=== PATIENT | male | born 1945 | race Caucasian/White ===

== ENCOUNTER 2020-12-14 11:10 | Observation (INO) | payer MEDICARE, OTHER, SELFPAY ==
[2020-12-14] VITALS (18 sets, daily range): BP systolic 89–140; BP diastolic 53–75; PULSE 83–153; RESP 18–25; TEMP 36.5–36.6; O2SAT 96–100; BMI 22.9
--- NOTE | ~2020-12-14 | XR_ITS ---
EXAMINATION: XR chest 1V portable 12/14/2020 11:28 INDICATION: Chest pain and shortness of breath PROCEDURE: AP portable chest COMPARISON: 03/21/2018 FINDINGS: The lungs are clear. The lungs are hyperinflated which is consistent with, but not diagnost ic of chronic obstructive pulmonary disease. The cardiomediastinal silhouette is within normal limit s. There are no pleural effusions. There is no pneumothorax suspected. IMPRESSION: 1: NO ACUTE CARDIOPULMONARY DISEASE. Reviewed, dictated and finalized at location A.
--- NOTE | 2020-12-14 11:14 | ECG_ITS ---
Measurements Intervals [place] Rate: 119 P: GA: 0 QRS: 25 QRSD: 82 T: 67 QT: 323 QTc: 455 Interpretive Statements SINUS TACHYCARDIA ATRIAL AND VENTRICULAR PREMATURE COMPLEXES BORDERLINE R WAVE PROGRESSION, ANTERIOR LEADS BORDERLINE T WAVE ABNORMALITY- HIGH LATERAL LEADS BASELINE ARTIFACT- I, II, AVR, AVL ABNORMAL ECG Electronically Signed On 12-14-2020 11:51:44 CDT by Fransico Guerra D.O.
[2020-12-14] MEDS: dilTIAZem HCl INJ 25 MG/5 ML VIAL IV PUSH (11:40)
--- NOTE | 2020-12-14 11:47 | ED.GENADULT ---
HPI - General Adult General Chief complaint: Arrhythmia/Palpitations Stated complaint: CP/SOB Time Seen by Provider: 12/14/20 11:14 Source: patient History of Present Illness HPI narrative: Patient is a 75 y/o male complaining of chest pain when he woke up this morning. He describes his chest pain as pressure and rates it as 8/10 initially. He state that his chest pain radiates to both side of his neck. He also has SOB and heart palpitation. He was given Adenosine by EMS and his symptoms have improved. He rates his chest discomfort as 2/10 currently. Related Data Home Medications Medication Instructions Recorded Confirmed sildenafil See Rx Instructions .ROUTE .COMPLEX 12/14/20 12/14/20 Allergies Allergy/AdvReac Type Severity Reaction Status Date / Time No Known Allergies Allergy Unknown Unverified 05/02/15 13:17 Review of Systems Constitutional: Constitutional: Denies chills, Denies fever(s), Denies headache(s) and Denies weakness Eyes: Eyes: Denies blurry vision ENT: Denies headache(s) and Denies neck pain Cardiovascular: Cardiovascular: Reports chest pain, Reports rapid heart rate and Reports dyspnea Respiratory: Respiratory: Denies cough and Reports dyspnea Gastrointestinal: Gastrointestinal: Denies abdominal pain, Denies diarrhea, Denies nausea and Denies vomiting Genitourinary: Genitourinary: Denies hematuria and Denies dysuria Musculoskeletal: Musculoskeletal: Denies back pain and Denies neck pain Neurologic: Denies headache(s) and Denies weakness [facility] Social History Social History Smoking packs per day: 1 Smoking cigarettes per day: 20.0 Years smoked: 60 Smoking pack-years: 60.00 Smoking status: Current every day smoker Tobacco type: cigarettes Alcohol intake: current Drinks per week: 56 Substance use: never Gender identity (if verbalized by the patient): Male Spiritual care concerns: No Exam Const: General: no acute distress and well developed Orientation/consciousness: oriented to person, oriented to place, oriented to time and patient oriented x3 HENMT: Head: normocephalic Ears: external ears normal General nose exam: Normal external nose present Eyes: General: appearance normal, both eyes and all related structures Conjunctivae: conjunctivae normal Neck: Neck: normal visual inspection and full ROM Chest: Chest palpation & inspection: normal inspection of the chest and no tenderness Resp: Effort & Inspection: normal respiratory effort Auscultation: clear to auscultation bilaterally Cardio: Rate: tachycardic Rhythm: regular rhythm GI: GI Palp: No abdominal tenderness and Yes Soft to palpation Skin: General skin exam: normal color and turgor normal Neuro: General: oriented to person, oriented to place, oriented to time and patient oriented x3 Cognition (Neuro): normal cognition Extrem: General: normal to inspection, full ROM and no pedal edema Psych: Appearance: grossly normal Mental Status: mental status grossly normal Affect: normal affect Course Reevaluation(s) Reevaluation #1: Monitor appears to show A fib/flutter with HR 140s. Will order Cardizem Date: 12/14/20 Time: 11:30 Consultations Consultation #1: Discussed with Dr. Heart, who will consult and recommends IV heparin. Date: 12/14/20 Time: 14:25 Consultation #2: Discussed with MITCHEL Colmenares, who agrees to admit. Date: 12/14/20 Time: 14:29 Vital Signs Vital signs: Vital Signs Temperature 36.5 C 12/14/20 11:12 Pulse Rate 116 H 12/14/20 11:12 Respiratory Rate 24 H 12/14/20 11:12 Blood Pressure 94/67 L 12/14/20 11:12 Pulse Oximetry 100 12/14/20 11:12 Temperature 36.5 C 12/14/20 11:12 Pulse Rate 113 H 12/14/20 15:37 Respiratory Rate 22 H 12/14/20 15:37 Blood Pressure 130/75 12/14/20 15:37 Pulse Oximetry 96 12/14/20 15:37 Medical Decision Making Vital Signs Vital Signs: Vital Signs Temperature
[2020-12-14 11:55] LABS: Basophils Percent Auto 0.3 % (0.2-1.2); Eosinophils Percent Auto 0.1 % (0-4.4); Hematocrit 40.4 % (42.0-52.0); Hemoglobin 13.6 g/dL (14.0-18.0); Immature Granulocyte Absolute 0.04 K/mm3 (0.00-0.031); Immature Granulocyte Percent A 0.6 % (0-0.5); Lymphocytes Absolute Auto 1.27 K/mm3 (0.9-3.2); Lymphocytes Percent Auto 18.2 % (18.3-44.2); Mean Corpuscular HGB Conc 33.7 g/dl (32-36); Mean Corpuscular Hemoglobin 35.4 pg (26-34); Mean Corpuscular Volume 105.2 fl (80-100); Mean Platelet Volume 9.9 fl (7.4-10.4); Monocytes Absolute Auto 0.7 K/mm3 (0.1-0.6); Monocytes Percent Auto 10.3 % (2.6-8.5); Neutrophils Absolute Auto 4.9 K/mm3 (1.3-6.7); Neutrophils Percent Auto 70.5 % (45.5-73.1); Platelet Count Result 102 k/mm3 (150-375); Red Blood Count 3.84 M/mm3 (4.6-6.20); Red Cell Distribution Width 17.1 % (11.5-14.5)
[2020-12-14 12:06] LABS: Prothrombin Time 13.8 Seconds (11.1-14.7)
[2020-12-14 12:07] LABS: Partial Thromboplastin Time 29.7 SECONDS (22.3-36.8)
[2020-12-14 12:11] LABS: Albumin Level 4.2 g/dL (3.5-5.1); Alkaline Phosphatase 85 U/L (38-126); Anion Gap 13 mmol/L (8-16); Aspartate Amino Transferase 92 U/L (17-59); Bilirubin,Total 1.5 mg/dL (0.2-1.3); Blood Urea Nitrogen 19 mg/dL (9-20); Carbon Dioxide 23 mmol/L (22-30); Chloride 102 mmol/L (98-107); Estimated CRCL calculation 54 ml/min; Estimated Glomerular Filt Rate 59; Glucose 130 mg/dL (75-110); Potassium 3.3 mmol/L (3.4-5.0); Sodium 138 mmol/L (137-145)
[2020-12-14 12:19] LABS: NT Pro B Type Natriuretic Pept 2830 PG/ML (5-100); Troponin I < 0.012 ng/mL (0.000-0.034)
[2020-12-14 12:23] LABS: Alanine Aminotransferase 46 U/L (4-50)
--- NOTE | 2020-12-14 12:43 | ECG_ITS ---
Measurements Intervals [place] Rate: 137 P: MT: 0 QRS: 22 QRSD: 79 T: 61 QT: 299 QTc: 452 Interpretive Statements ATRIAL FIBRILLATION WITH RAPID VENTRICULAR RESPONSE BORDERLINE R WAVE PROGRESSION, ANTERIOR LEADS ABNORMAL ECG Electronically Signed On 12-14-2020 13:58:20 CDT by Fransico Guerra D.O.
[2020-12-14] MEDS: SODIUM CHLORIDE 0.9% IV 1,000 ML 999 ML IV CONT ×2 (12:57→14:44)
[2020-12-14] MEDS: AMIODARONE 150 MG/D5W 100 ML 150 MG/100 ML BAG 600 MG IV CONT (13:47)
[2020-12-14] MEDS: POTASSIUM CHLORIDE 20 MEQ TABLET PO (13:49)
[2020-12-14 14:02] LABS: Magnesium 1.3 mg/dL (1.6-2.3)
[2020-12-14] MEDS: AMIODARONE 360 MG/D5W 200 ML 360 MG/200 ML BAG 33.33 MG IV CONT (14:11)
--- NOTE | 2020-12-14 14:45 | PM.CNCAR ---
Assessment and Plan Assessment and plan (1) Atrial fibrillation with rapid ventricular response: Code(s): I48.91 - Unspecified atrial fibrillation Status: Acute Assessment and Plan: Rate improved with Cardizem, but continued to have significant tachycardia, subsequently was started on amiodarone, rate is slowing down now he feels more comfortable, I would continue with low-dose Cardizem drip along with amiodarone drip until heart rate is down in the 70s then was switched to oral medications. Will get echocardiogram to evaluate current status left ventricular systolic function look for any other structural heart disease (2) Shortness of breath: Code(s): R06.02 - Shortness of breath Status: Acute Assessment and Plan: will get echo today, shortness breath could be due to COPD, or due to atrial fibrillation, and subsequent diastolic congestive heart failure (3) Atypical chest pain: Code(s): R07.89 - Other chest pain Status: Acute Assessment and Plan: Currently pain-free, will follow up cardiac enzymes and serial EKGs, he would need further cardiac workup possibly with a stress test at some point when he is otherwise more stable (4) Peripheral vascular disease: Code(s): I73.9 - Peripheral vascular disease, unspecified Status: Acute (5) Smoking: Code(s): F17.200 - Nicotine dependence, unspecified, uncomplicated Status: Acute (6) History of incision of pericardium: Code(s): Z98.890 - Other specified postprocedural states Status: Acute Additional Plan Thank you for allowing me to participate in this patient's care, I will be following up with you. Please do not hesitate to call me for any other inquiry History of Present Illness History of Present Illness Consult date/time: 12/14/20 14:45 75 years old gentleman, with history of pericarditis and history of pericardial window, came to the hospital because of palpitation started this morning. Start having palpitation and lightheadedness earlier this morning initially noted to have atrial fibrillation with rate of 140-150 she was he was started on Cardizem drip, with some improvement of the right and he continued to have significant tachycardia noted to have a soft blood pressure. Upon my arrival he seems to be feeling better and his heart rate now is like 110 he was started on amiodarone drip which seem to be helping with his heart rate now. Also had some chest pain heaviness in the chest with radiation to the back, no orthopnea no PNDs no dizziness. He stated that few years ago he had pericarditis and he had dizziness and noted to have pericardial tamponade lead into cardiac window that was done at [facility]. Since then he had a stress test several years ago but no recent cardiac workup otherwise. Currently he is in AFib rate 110 not having active pain and not having active palpitation. Reason For Visit: CP/SOB Review of Systems Review of Systems: Narrative: Feels fatigued, dizziness as above and palpitation as above, he has cold legs and occasional claudication Constitutional: Constitutional: Reports as per HPI Cardiovascular: Cardiovascular: Reports as per HPI Respiratory: Respiratory: Reports as per HPI and Reports cough Meds Home Medications and Allergies Allergies Allergy/AdvReac Type Severity Reaction Status Date / Time No Known Allergies Allergy Unknown Unverified 05/02/15 13:17 Vital Signs Vital Signs - 24 hr 12/14/20 11:12 12/14/20 11:40 12/14/20 12:14 Temperature 36.5 C Pulse Rate 116 H 147 H 153 H Respiratory Rate 24 H 25 H Blood Pressure 94/67 L 93/58 L 105/74 Pulse Oximetry 100 100 12/14/20 13:15 12/14/20 14:11 Temperature Pulse Rate 127 H 115 H Respiratory Rate Blood Pressure 91/71 L Pulse Oximetry Exam Narrative: Exam Narrative: Awake alert oriented x3 not in acute distress Neck is supple no obvious JVD, no carotid bruit Rowan
[2020-12-14 14:48] LABS: Troponin I < 0.012 ng/mL (0.000-0.034)
[2020-12-14] MEDS: DIGOXIN INJ 250 MCG/ML 2 ML AMP (*BKC) IV PUSH (15:14)
[2020-12-14] MEDS: HEPARIN SODIUM 5,000 UNITS/ML VIAL 4000 UNITS IV PUSH (15:14)
[2020-12-14] MEDS: HEPARIN SOD/D5W 100 UNITS/ML 25,000 UNITS/250 ML BAG 10 UNITS IV CONT (15:17)
--- NOTE | 2020-12-14 16:34 | ADMGEN ---
This patient, Tino Whitlock, was admitted to IMU Room 204-01. Patient/family oriented to hospital policies and general routines including ID bracelet, bed and alarms, visiting hours, pain management, procedures, bathroom and other care routines, personal items, smoking policy, room service/diet, and visiting hours. Information on how to activate the Rapid Response Team has been discussed. Patient/Family are encouraged to report perceived risks to care and to ask questions if they do not understand what they are told or what they should do.
[2020-12-14 17:51] LABS: Troponin I < 0.012 ng/mL (0.000-0.034)
[2020-12-14] MEDS: chlordiazePOXIDE (*CRX) 25 MG CAPSULE 50 MG PO ×2 (18:32→23:19)
--- NOTE | 2020-12-14 20:17 | PM.IMHP ---
H&P: HPI History of Present Illness Date/Time: 12/14/20 20:17 Chief Complaint: chest pain since this morning++ Narrative: This is a pleasant 75-year-old male with no significant past medical history who does not take any medications at home regularly and presented to the hospital today after waking up this morning with significant chest pain. Patient's chest pain was described as pressure-like and radiating up towards his neck. The patient also felt very tremulous, anxious, and diaphoretic. The patient is known to be a chronic lifelong smoker and drinker of alcohol. He recently just stopped drinking alcohol approximately 2 days ago. He is known to normally drink 5 or 6 drinks of vodka daily. EMS found that the patient was in SVT with a heart rate in the 200s and was treated with adenosine in route to the hospital. EKG obtained in the emergency room demonstrated atrial fibrillation with RVR. The patient has no past history of cardiac arrhythmias or known coronary artery disease.The patient was treated with Cardizem, digoxin, and amiodarone to help control his heart rate. He was also anticoagulated with heparin IV. Cardiology has been consulted and has already evaluated the patient. The patient denies any recent fevers, chills, coughing, sore throat, abdominal pain, nausea, vomiting, dysuria, hematuria, diarrhea, rectal bleeding, lower extremity pain or swelling. Patient has been admitted for cardiac rule out and for his new onset atrial fibrillation. On my encounter with the patient tonight he denies any current chest pain and his heart rate is now relatively controlled. Review of Systems Review of Systems: All systems reviewed & are unremarkable except as noted in HPI and below PMFSH Past Medical History Medical History (Updated 12/14/20 @ 20:33 by Addy Barnett MD) Pericardial effusion Surgical History Surgical History (Updated 12/14/20 @ 20:25 by Addy Barnett MD) S/P pericardial window creation Family History Family History (Updated 12/14/20 @ 21:34 by Racquel Wolf RN) Other Unknown family medical history Social History Social History Smoking packs per day: 1 Smoking cigarettes per day: 20.0 Years smoked: 60 Smoking pack-years: 60.00 Smoking status: Current every day smoker Tobacco type: cigarettes Alcohol intake: current Drinks per week: 56 Substance use: never Gender identity (if verbalized by the patient): Male Spiritual care concerns: No Comments Family Medical history is reviewed and unremarkable. Meds Home Medications and Allergies Home Medications Medication Instructions Recorded Confirmed Type sildenafil See Rx Instructions .ROUTE .COMPLEX 12/14/20 12/14/20 History Allergies Allergy/AdvReac Type Severity Reaction Status Date / Time No Known Allergies Allergy Unknown Unverified 05/02/15 13:17 Vital Signs Vital Signs - 24 hr 12/14/20 11:12 12/14/20 11:40 12/14/20 12:14 Temperature 36.5 C Pulse Rate 116 H 147 H 153 H Pulse Rate [Monitor] Respiratory Rate 24 H 25 H Blood Pressure 94/67 L 93/58 L 105/74 Pulse Oximetry 100 100 12/14/20 13:15 12/14/20 14:11 12/14/20 15:14 Temperature Pulse Rate 127 H 115 H 112 H Pulse Rate [Monitor] Respiratory Rate Blood Pressure 91/71 L Pulse Oximetry 12/14/20 15:20 12/14/20 15:37 12/14/20 17:07 Temperature 36.6 C Pulse Rate 107 H 113 H 89 Pulse Rate [Monitor] Respiratory Rate 21 H 22 H 22 H Blood Pressure 89/74 L 130/75 140/53 L Pulse Oximetry 99 96 98 12/14/20 17:17 12/14/20 17:31 12/14/20 18:30 Temperature Pulse Rate 89 103 H Pulse Rate [Monitor] 104 H Respiratory Rate 22 H Blood Pressure Pulse Oximetry 98 12/14/20 19:48 Temperature 36.6 C Pulse Rate 97 Pulse Rate [Monitor] Respiratory Rate 18 Blood Pressure 98/60 L Pulse Oximetry 96 Exam Const: General: cooperativ
[2020-12-14] MEDS: AMIODARONE 360 MG/D5W 200 ML 360 MG/200 ML BAG 16.67 MG IV CONT (20:59)
[2020-12-14 21:24] LABS: Anion Gap 2 mmol/L (8-16); Blood Urea Nitrogen 19 mg/dL (9-20); Calcium 8.2 mg/dL (8.4-10.2); Carbon Dioxide 28 mmol/L (22-30); Chloride 105 mmol/L (98-107); Estimated CRCL calculation 63 ml/min; Estimated Glomerular Filt Rate > 60; Glucose 97 mg/dL (75-110); Magnesium 1.2 mg/dL (1.6-2.3); Potassium 3.7 mmol/L (3.4-5.0); Sodium 135 mmol/L (137-145)
[2020-12-14 21:25] LABS: Partial Thromboplastin Time 67.9 SECONDS (22.3-36.8)
[2020-12-14] MEDS: NICOTINE (*PBKC) 21 MG PATCH 1 PATCH TRANSDERM (23:18)
[2020-12-14] MEDS: dilTIAZem HCL 60 MG TABLET PO (23:31)
[2020-12-14] MEDS: HEPARIN SODIUM 5,000 UNITS/ML VIAL 3500 UNITS IV PUSH (23:31)
[2020-12-15] VITALS (18 sets, daily range): BP systolic 109–119; BP diastolic 52–85; PULSE 74–100; RESP 18–22; TEMP 36–36.6; O2SAT 92–100
[2020-12-15 05:14] LABS: Basophils Percent Auto 0.4 % (0.2-1.2); Eosinophils Absolute Auto 0.1 K/mm3 (0-0.3); Eosinophils Percent Auto 1.8 % (0-4.4); Hematocrit 32.4 % (42.0-52.0); Immature Granulocyte Absolute 0.03 K/mm3 (0.00-0.031); Immature Granulocyte Percent A 0.7 % (0-0.5); Lymphocytes Absolute Auto 1.21 K/mm3 (0.9-3.2); Lymphocytes Percent Auto 26.9 % (18.3-44.2); Mean Corpuscular Hemoglobin 35.7 pg (26-34); Mean Corpuscular Volume 105.2 fl (80-100); Mean Platelet Volume 10.5 fl (7.4-10.4); Monocytes Absolute Auto 0.4 K/mm3 (0.1-0.6); Monocytes Percent Auto 9.6 % (2.6-8.5); Neutrophils Absolute Auto 2.7 K/mm3 (1.3-6.7); Neutrophils Percent Auto 60.6 % (45.5-73.1); Platelet Count Result 92 k/mm3 (150-375); Red Blood Count 3.08 M/mm3 (4.6-6.20); Red Cell Distribution Width 17.1 % (11.5-14.5); White Blood Count 4.5 K/mm3 (4.5-10.0)
[2020-12-15] MEDS: chlordiazePOXIDE (*CRX) 25 MG CAPSULE 50 MG PO ×4 (05:23→23:09)
[2020-12-15] MEDS: dilTIAZem HCL 60 MG TABLET PO (05:23)
[2020-12-15 05:32] LABS: Partial Thromboplastin Time 192.3 SECONDS (22.3-36.8)
--- NOTE | 2020-12-15 08:18 | PM.IMPN ---
Progress Note: A&P Assessment and Plan (1) Atrial fibrillation with rapid ventricular response: Code(s): I48.91 - Unspecified atrial fibrillation Status: Acute Assessment and Plan: Patient has been admitted to IMU, telemetry. Continue amiodarone and Cardizem for rate control overnight. Continue heparin IV for anticoagulation. TSH is nromal., echocardiogram reviewed. Continue Cardiology recommendations. iv heaprin gtt stoped. back to sinus rhythm (2) Chest pain: Qualifiers: Chest pain type: unspecified Qualified Code(s): R07.9 - Chest pain, unspecified Code(s): R07.9 - Chest pain, unspecified Status: Acute Assessment and Plan: ACS ruled out. chest pain likely from severe tachycardia and alcohol withdrawal. apprecaite cardiology recs. (3) Alcohol withdrawal: Qualifiers: Complication of substance-induced condition: with unspecified complication Qualified Code(s): F10.239 - Alcohol dependence with withdrawal, unspecified Code(s): F10.239 - Alcohol dependence with withdrawal, unspecified Status: Acute Assessment and Plan: [facility] protocol. Thiamine IV daily. Ativan withdrawal prophylaxis IV. Librium p.o. scheduled. Social service consult. still on withdrawal. (4) Hypokalemia: Code(s): E87.6 - Hypokalemia Status: Acute Assessment and Plan: repalced. mg low which is replaced. recheck ordered. (5) Hypomagnesemia: Code(s): E83.42 - Hypomagnesemia Status: Acute Assessment and Plan: supplmeented. monitor with recheck. (6) Macrocytic anemia: Code(s): D53.9 - Nutritional anemia, unspecified Status: Chronic Assessment and Plan: Likely chronic and secondary to chronic alcoholism. Monitor H&H, transfuse p.r.n.. No signs of acute blood loss (7) Tobacco dependence: Code(s): F17.200 - Nicotine dependence, unspecified, uncomplicated Status: Chronic Assessment and Plan: on alcohol withdrdawal. iv heparin gtt off. cardiology okay to discahrge . await medical stability from alcohol withdrawal standpoint. Subjective Date/time seen: 12/15/20 08:18 feels okay and much better. he is still shaky and is on scheduled librium. he has been drinking quite a long time and wants to quit. Review of Systems Review of Systems: All systems reviewed & are unremarkable except as noted in HPI and below Constitutional: Constitutional: Denies body ache(s), Denies fatigue and Denies weakness Eyes: Eyes: Denies photophobia ENT: Denies Normal hearing present and Denies tinnitus Cardiovascular: Cardiovascular: Denies chest pain and Denies palpitations Respiratory: Respiratory: Denies dyspnea and Denies dyspnea on exertion Gastrointestinal: Gastrointestinal: Denies melena, Denies nausea and Denies vomiting Genitourinary: Genitourinary: Denies urinary frequency and Denies urinary incontinence Musculoskeletal: Musculoskeletal: Denies back pain and Denies arthralgias Integumentary/Breasts: Skin/Breast: Denies rash and Denies unusual bruising Neurologic: Denies headache(s) and Denies numbness Psychiatric: Psychiatric: Denies anxiety and Denies confusion Exam Const: General: cooperative, no acute distress, alert and awake Nutritional Appearance: well nourished Orientation/consciousness: patient oriented x3 Other: tremulous HENMT: Head: normal to inspection General nose exam: Normal external nose present Face and sinus: normal facial exam Mouth: Yes Normal oral and palatal mucosa present, Yes oropharynx normal and Yes moist mucous membranes Eyes: Pupils: Equal, round and reactive pupils present EOM: EOMs intact bilaterally Neck: Neck: supple and no JVD Thyroid: thyroid normal Lymphatic: lymphadenopathy not noted Resp: Effort & Inspection: normal respiratory effort Auscultation: wheezes throughout and diminished lung sounds Cardio: Rate: tachycardic Rhythm: abnormal rhythm irr
--- NOTE | 2020-12-15 08:26 | PM.PNCARD ---
Progress Note: A&P Assessment and Plan (1) Atrial fibrillation with rapid ventricular response: Code(s): I48.91 - Unspecified atrial fibrillation Status: Acute Assessment and Plan: 75 y/o with h/o pericarditis s/p pericardial window, paroxysmal A fib, alcohol and tobacco abuse who presents with A fib with RVR Likely in the setting of excessive alcohol use. Converted to sinus rhythm overnight. He reports prior history of A fib few years ago. He is followed at [facility] by Dr Paloma Orozco to long acting. Also started on Amiodarone 2D echo pending alcohol and smoking cessation counselling (2) Peripheral vascular disease: Code(s): I73.9 - Peripheral vascular disease, unspecified Status: Acute (3) Smoking: Code(s): F17.200 - Nicotine dependence, unspecified, uncomplicated Status: Acute (4) History of incision of pericardium: Code(s): Z98.890 - Other specified postprocedural states Status: Acute Additional Plan Thank you for allowing me to participate in this patient's care, I will be following up with you. Please do not hesitate to call me for any other inquiry Subjective Date/time seen: 12/15/20 08:26 He converted to sinus rhythm. Feels better now. He has tremors and feels that he is going in withdrawal from alcohol. He also asks for nicotine patch Review of Systems Constitutional: Constitutional: Reports as per HPI Cardiovascular: Cardiovascular: Reports as per HPI Respiratory: Respiratory: Reports as per HPI and Reports cough Exam Narrative: Exam Narrative: Awake alert oriented x3 not in acute distress Neck is supple no obvious JVD, no carotid bruit Chest: decreased air entry noted, with minimal wheezing noted bilaterally Cardiovascular: irregularly irregular rhythm, with slight tachycardia, 2/6 systolic murmur noted left sternal border Abdomen: Soft nontender bowel sounds positive Extremities: No edema has decreased pulses distally bilaterally Objective Data Vital Signs Vital Signs: Vital Signs - 24 hr 12/14/20 11:12 12/14/20 11:40 12/14/20 12:14 Temperature 36.5 C Pulse Rate 116 H 147 H 153 H Pulse Rate [Bilateral Pedal (Dorsalis Pedis) Palpation] Pulse Rate [Monitor] Respiratory Rate 24 H 25 H Blood Pressure 94/67 L 93/58 L 105/74 Pulse Oximetry 100 100 12/14/20 13:15 12/14/20 14:11 12/14/20 15:14 Temperature Pulse Rate 127 H 115 H 112 H Pulse Rate [Bilateral Pedal (Dorsalis Pedis) Palpation] Pulse Rate [Monitor] Respiratory Rate Blood Pressure 91/71 L Pulse Oximetry 12/14/20 15:20 12/14/20 15:37 12/14/20 17:07 Temperature 36.6 C Pulse Rate 107 H 113 H 89 Pulse Rate [Bilateral Pedal (Dorsalis Pedis) Palpation] Pulse Rate [Monitor] Respiratory Rate 21 H 22 H 22 H Blood Pressure 89/74 L 130/75 140/53 L Pulse Oximetry 99 96 98 12/14/20 17:17 12/14/20 17:31 12/14/20 18:30 Temperature Pulse Rate 89 103 H Pulse Rate [Bilateral Pedal (Dorsalis Pedis) Palpation] Pulse Rate [Monitor] 104 H Respiratory Rate 22 H Blood Pressure Pulse Oximetry 98 12/14/20 19:48 12/14/20 20:00 12/14/20 22:00 Temperature 36.6 C Pulse Rate 97 97 88 Pulse Rate [Bilateral Pedal (Dorsalis Pedis) Palpation] Pulse Rate [Monitor] Respiratory Rate 18 Blood Pressure 98/60 L Pulse Oximetry 96 98 12/14/20 23:18 12/14/20 23:43 12/14/20 23:44 Temperature 36.5 C Pulse Rate 83 Pulse Rate [Bilateral Pedal (Dorsalis Pedis) Palpation] 85 Pulse Rate [Monitor] Respiratory Rate 20 Blood Pressure 98/59 L Pulse Oximetry 97 98 12/15/20 00:00 12/15/20 02:00 12/15/20 04:00 Temperature 36.6 C Pulse Rate 89 76 81 Pulse Rate [Bilateral Pedal (Dorsalis Pedis) Palpation] 78 Pulse Rate [Monitor] Respiratory Rate 20 Blood Pressure 118/52 L Pulse Oximetry 96 12/15/20 06:00 Temperature Pulse Rate 74 Pulse Rate [Bilateral Pedal (Dors
[2020-12-15] MEDS: NICOTINE (*PBKC) 21 MG PATCH 1 PATCH TRANSDERM (09:33)
[2020-12-15] MEDS: MAGNESIUM SULF 2 GM/WATER 50ML 2 GM/50 ML BAG IVPB (09:40)
[2020-12-15] MEDS: PERFLUTREN LIPID MICROSPHERES 1.5 ML VIAL DILUTED TO 10 ML TOTAL VOLUME IV PUSH (10:05)
[2020-12-15] MEDS: THIAMINE HCL 200 MG/2 ML VIAL 100 MG IV PUSH (10:25)
[2020-12-15] MEDS: AMIODARONE HCL 200 MG TABLET 400 MG PO (10:25)
[2020-12-15 12:15] LABS: Magnesium 1.8 mg/dL (1.6-2.3)
[2020-12-15 13:34] LABS: Partial Thromboplastin Time 36.7 SECONDS (22.3-36.8)
--- NOTE | 2020-12-15 17:41 | PC.NURSE ---
Patient covid vaccine scheduled for 12/16/20 at 1400. Patient hopes to be discharged prior to this time. Communicated this information to hospitalist.
[2020-12-15] MEDS: LORazepam INJ (*CRX) 2 MG/ML VIAL 1 MG IV PUSH (19:59)
--- NOTE | 2020-12-15 20:02 | ECHO_ITS ---
Patient Info Name: Tino Whitlock Age: 75 years : 1945 Gender: Male Ht: 73 in Wt: 173 lbs BSA: 2.01 m2 HR: 85 bpm BP: 118 / 52 mmHg Technical Quality: Fair Exam Date: 12/15/2020 9:21 AM Exam Location: [facility] Patient Status: Outpatient Admit Date: 12/14/2020 Staff Ordering Physician: Addy Barnett MD Director Of Business Operations: Cholo Miller, ANNMARIE, RT Attending Provider: Sheryl Cotter MD Referring Physician: Ericka LAZO; Exam Type: CA echo doppler color flow Study Info Indications I48.1 - Persistent atrial fibrillation Complete two-dimensional, color flow and Doppler transthoracic echocardiogram is performed. Summary 1. Complete two-dimensional, color flow and Doppler transthoracic echocardiogram is performed. 2. Left ventricular chamber dimension is mildly enlarged. 3. Left ventricular systolic function is normal, estimated at 50-55%. 4. The aortic valve is not well visualized. 5. There is no aortic valve stenosis. 6. The mitral valve is not well visualized. 7. There is no mitral valve regurgitation. 8. Normal inferior vena cava with >50% collapse upon inspiration consistent with normal right atrial pressure. 9. Very suboptimal study, poor acoustic windows. Left Ventricle Left ventricular chamber dimension is mildly enlarged. Left ventricular systolic function is normal, estimated at 50-55%. There is no increased left ventricular wall thickness. Left ventricular septal wall motion is normal. The left ventricular diastolic function is grade I diastolic dysfunction. Right Ventricle The right ventricle is not well visualized but appears grossly normal in size and systolic function. Left Atria Left atrial chamber dimension is not well visualized. Right Atria Right atrial chamber dimension is not well visualized. Aortic Valve The aortic valve is not well visualized. There is no aortic valve stenosis. There is no aortic valve regurgitation. Pulmonic Valve The pulmonic valve is not well visualized. There is no pulmonic valve stenosis. There is no pulmonic regurgitation. Mitral Valve The mitral valve is not well visualized. There is no mitral valve stenosis. There is no mitral valve regurgitation. Tricuspid Valve The tricuspid valve leaflets are normal and not well visualized. There is no tricuspid valve regurgitation. No pulmonary hypertension, estimated pulmonary arterial systolic pressure is 27 mmHg. Pericardium/Pleural The pericardium appears normal. There is no pericardial effusion. Inferior Vena Cava Normal inferior vena cava with >50% collapse upon inspiration consistent with normal right atrial pressure. Aorta The aortic root size at the sinus of Valsalva is not well visualized. The prox ascending aorta size is not well visualized. Left Ventricular Outflow Tract Name Value Normal LVOT Doppler LVOT Peak Gradient 2 mmHg LVOT Mean Gradient 1 mmHg LVOT VTI 13 cm LVOT VTI/AV VTI Ratio 0.9 Mitral Valve Name Value Normal
[2020-12-16] VITALS (8 sets, daily range): BP systolic 138–153; BP diastolic 63–80; PULSE 74–108; RESP 18–24; TEMP 36.2–36.4; O2SAT 96–100
[2020-12-16 05:12] LABS: Basophils Percent Auto 0.5 % (0.2-1.2); Eosinophils Absolute Auto 0.1 K/mm3 (0-0.3); Eosinophils Percent Auto 2.1 % (0-4.4); Hematocrit 31.3 % (42.0-52.0); Hemoglobin 10.6 g/dL (14.0-18.0); Immature Granulocyte Absolute 0.03 K/mm3 (0.00-0.031); Immature Granulocyte Percent A 0.8 % (0-0.5); Lymphocytes Absolute Auto 0.95 K/mm3 (0.9-3.2); Lymphocytes Percent Auto 24.9 % (18.3-44.2); Mean Corpuscular HGB Conc 33.9 g/dl (32-36); Mean Corpuscular Hemoglobin 35.3 pg (26-34); Mean Corpuscular Volume 104.3 fl (80-100); Mean Platelet Volume 10.6 fl (7.4-10.4); Monocytes Absolute Auto 0.5 K/mm3 (0.1-0.6); Monocytes Percent Auto 12.3 % (2.6-8.5); Neutrophils Absolute Auto 2.3 K/mm3 (1.3-6.7); Neutrophils Percent Auto 59.4 % (45.5-73.1); Platelet Count Result 89 k/mm3 (150-375); Red Cell Distribution Width 16.7 % (11.5-14.5); White Blood Count 3.8 K/mm3 (4.5-10.0)
[2020-12-16 05:24] LABS: Anion Gap 2 mmol/L (8-16); Blood Urea Nitrogen 18 mg/dL (9-20); Calcium 7.9 mg/dL (8.4-10.2); Carbon Dioxide 29 mmol/L (22-30); Chloride 106 mmol/L (98-107); Estimated CRCL calculation 64 ml/min; Estimated Glomerular Filt Rate > 60; Glucose 95 mg/dL (75-110); Magnesium 1.5 mg/dL (1.6-2.3); Potassium 3.8 mmol/L (3.4-5.0); Sodium 137 mmol/L (137-145)
[2020-12-16] MEDS: chlordiazePOXIDE (*CRX) 25 MG CAPSULE 50 MG PO (06:42)
[2020-12-16] MEDS: NICOTINE (*PBKC) 21 MG PATCH 1 PATCH TRANSDERM (08:11)
[2020-12-16] MEDS: AMIODARONE HCL 200 MG TABLET 400 MG PO (08:11)
[2020-12-16] MEDS: THIAMINE HCL 200 MG/2 ML VIAL 100 MG IV PUSH (08:11)
--- NOTE | 2020-12-16 10:23 | PM.DS ---
DS: Admitting Diagnosis Admitting Diagnosis Admitting Diagnosis: Atrial fibrillation DS: Discharge Diagnosis Discharge Diagnosis (1) Atrial fibrillation with rapid ventricular response: Code(s): I48.91 - Unspecified atrial fibrillation Status: Acute Assessment and Plan: Patient has been admitted to IMU, telemetry. Continue amiodarone and Cardizem for rate control overnight. Continue heparin IV for anticoagulation. TSH is nromal., echocardiogram reviewed. Continue Cardiology recommendations. iv heaprin gtt stoped. back to sinus rhythm (2) Chest pain: Qualifiers: Chest pain type: unspecified Qualified Code(s): R07.9 - Chest pain, unspecified Code(s): R07.9 - Chest pain, unspecified Status: Acute Assessment and Plan: ACS ruled out. chest pain likely from severe tachycardia and alcohol withdrawal. apprecaite cardiology recs. (3) Alcohol withdrawal: Qualifiers: Complication of substance-induced condition: with unspecified complication Qualified Code(s): F10.239 - Alcohol dependence with withdrawal, unspecified Code(s): F10.239 - Alcohol dependence with withdrawal, unspecified Status: Acute Assessment and Plan: [facility] protocol. Thiamine IV daily. Ativan withdrawal prophylaxis IV. Librium p.o. scheduled. Social service consult. still on withdrawal. (4) Hypokalemia: Code(s): E87.6 - Hypokalemia Status: Acute Assessment and Plan: repalced. mg low which is replaced. recheck ordered. (5) Hypomagnesemia: Code(s): E83.42 - Hypomagnesemia Status: Acute Assessment and Plan: supplmeented. monitor with recheck. (6) Macrocytic anemia: Code(s): D53.9 - Nutritional anemia, unspecified Status: Chronic Assessment and Plan: Likely chronic and secondary to chronic alcoholism. Monitor H&H, transfuse p.r.n.. No signs of acute blood loss (7) Tobacco dependence: Code(s): F17.200 - Nicotine dependence, unspecified, uncomplicated Status: Chronic Assessment and Plan: on alcohol withdrdawal. iv heparin gtt off. cardiology okay to discahrge . await medical stability from alcohol withdrawal standpoint. DS: Summary Hospital Course Reason for hospitalization: Atrial fibrillation Hospital Course: Patient is 75 years old male was admitted with atrial fibrillation with rapid ventricular response. Patient has history of chronic alcohol abuse. Patient was given CIWA scale. The patient was also started on amiodarone and Cardizem. His heart rate was controlled. Today patient is feeling better so patient was sent home stable condition. Patient is also referred to outpatient alcohol rehab. Time spent discussing smoking cessation with patient: 3 to 10 minutes Status at Discharge Cognitive/behavioral status at discharge: Stable Functional status at discharge: independent ambulation Overall status at discharge: patient is back to baseline Time Spent with Patient Time attestation: Total time spent providing and/or coordinating discharge services: Time spent: Less than 30 minutes Exam Const: General: cooperative, no acute distress, alert and awake; No confusion Nutritional Appearance: well nourished Orientation/consciousness: patient oriented x3 and No confusion Other: tremulous HENMT: Head: normal to inspection General nose exam: Normal external nose present Face and sinus: normal facial exam Mouth: Yes Normal oral and palatal mucosa present, Yes oropharynx normal and Yes moist mucous membranes Eyes: Pupils: Equal, round and reactive pupils present EOM: EOMs intact bilaterally Direct Ophthalmoscopy: No photophobia Neck: Neck: supple and no JVD Thyroid: thyroid normal Lymphatic: lymphadenopathy not noted Resp: Effort & Inspection: normal respiratory effort Auscultation: wheezes throughout and diminished lung sounds Cardio: Rate: tachycardic Rhythm: abnormal rhythm irregularly irregular
[2020-12-16] MEDS: MAGNESIUM OXIDE 400 MG TABLET PO (10:53)
== END 2020-12-16 12:01 | disposition home or self-care (01) ==
LOC: ANHED 12:06 → ANHIMU 15:58
PROVIDERS: Family Medicine; Internal Medicine; Physician Assistant; Specialist; Admitting Provider Family Medicine; Emergency Provider Emergency Medicine; PCP Family Medicine; Visit Provider Internal Medicine
DX: I48.91 Unspecified atrial fibrillation (principal); R07.9 Chest pain, unspecified; D53.9 Nutritional anemia, unspecified; E87.6 Hypokalemia; E83.42 Hypomagnesemia; F17.210 Nicotine dependence, cigarettes, uncomplicated; F10.239 Alcohol dependence with withdrawal, unspecified; I73.9 Peripheral vascular disease, unspecified; R06.02 Shortness of breath
CPT/HCPCS: 36415; 71045; 80048; 80053; 83735; 83880; 84443; 84484; 85025; 85610; 85730; 93005; 93306; 96365; 96366; 96367; 96368; 96375; 96376; 99285; A9270; G0378; J0282; J1160; J1644; J2060; J3411; J3475; J7030; Q9957